=== PATIENT | female | born 1995 | race Two or more races ===

== ENCOUNTER 2017-01-08 23:39 | Emergency (ER) | payer OTHER ==
--- NOTE | 2017-01-09 00:07 | EDPHY ---
H & P Stated Complaint: abd pain; 6 weeks HPI/ROS: HPI CHIEF COMPLAINT: Abdominal pain and 6 weeks HISTORY OF PRESENT ILLNESS: This patient very pleasant 21-year-old female otherwise healthy no significant medical history does not take any daily medications she presents emergency room with her significant other abdominal pain. Associated nausea. She denies any fever chest pain or shortness of breath. She denies active vomiting. She states around 730 this morning she developed some left upper quadrant abdominal pain and nausea but no vomiting. Denies any vaginal discharge or vaginal bleeding. Denies any urinary symptoms or back pain. Denies chest pain or shortness of breath or pleuritic pain. She does state that she is 6 weeks she states she took a home test that was positive and her last menstrual period was November 24. No other complaints. Past Medical History: Denies medical history Past Surgical History: Denies surgical history Social History: Denies daily use of drugs alcohol tobacco. Family History: Noncontributory ROS REVIEW OF SYSTEMS: A comprehensive 10 point review of systems is otherwise negative aside from elements mentioned in the history of present illness. Exam Constitutional appears well nontoxic triage nursing summary reviewed, vital signs reviewed, awake/alert. Eyes normal conjunctivae and sclera, EOMI, PERRLA. HENT normal inspection, atraumatic, moist mucus membranes, no epistaxis, neck supple/ no meningismus, no raccoon eyes. Respiratory clear to auscultation bilaterally, normal breath sounds, no respiratory distress, no wheezing. Cardiovascular rate normal, regular rhythm, no murmur, no edema, distal pulses normal. Gastrointestinal I cannot elicit any pain on exam, soft, non-tender, no rebound , no guarding, normal bowel sounds, no distension, no pulsatile mass. Genitourinary no CVA tenderness. Musculoskeletal no midline vertebral tenderness, full range of motion, no calf swelling, no tenderness of extremities, no meningismus, good pulses, neurovascularly intact. Skin pink, warm, & dry, no rash, skin atraumatic. Neurologic awake, alert and oriented x 3, AAOx3, moves all 4 extremities equally, motor intact, sensory intact, CN II-XII intact, normal cerebellar, normal vision, normal speech. Psychiatric normal mood/affect. Heme/Lymph/Immune no lymphadenopathy. Differential diagnosis includes but is not limited to and in no particular order : Ectopic , abdominal pain in , threatened AB, Bowel obstruction, appendicitis, gallbladder disease, diverticulitis, colitis, enteritis, perforated viscus, gastritis, GERD, esophagitis, urinary tract infection, pyelonephritis, kidney stones Medical Decision Making: Plan for this patient IV establishment, blood draw, test, quant, ultrasound for , check urinalysis, gentle IV hydration and Zofran for nausea and re-evaluate. Re-evaluation: 0210: Ultrasound shows 6 week IUP. Otherwise unremarkable ultrasound. Blood work has been reviewed is unremarkable. No leukocytosis. Patient is resting comfortably no acute distress abdomen is soft nontender. Discussed return precautions she understands return emergency room she develops worsening abdominal pain fever vomiting. Source: Patient - Personal History Current Tetanus/Diphtheria Vaccine: Unsure - Medical/Surgical History Hx Asthma: No Hx Chronic Respiratory Disease: No Hx Diabetes: No Hx Cardiac Disease: No Hx Renal Disease: No Hx Cirrhosis: No Hx Alcoholism: No Hx HIV/AIDS: No Hx Splenectomy or Spleen Trauma: No Other PMH: PMHx: PSHx: denies - Social History Smoking Status: Never smoked Constitutional: Initial Vital Signs Temperature (C) 36.6 C 01/08/17 23:44 Heart Rate 65 01/08/17 23:44 Respiratory Rate 16 01/08/17 23:44 Blood Pressure 115/71 01/08/17 23:44 O2 Sat (%) 96 01/08/17 23:44 O2 Delivery Mode Room Air Allergies/Adverse Reactions: No Known Allergies Allergy (Unverified 01/08/17 23:44) Home Medications: Medication Instructions Recorded NK [No Known Home Meds] 01/08/17 Medical Decision Making - Data Points Laboratory Results: Laboratory Results 01/09/17 01:20 01/09/17 01:20 01/09/17 01/09/17 01/09/17 01:20 01:20 01:00 WBC 9.30 10^3/uL 10^3/uL (3.80-9.50) RBC 5.40 10^6/uL H 10^6/uL (4.18-5.33) Hgb 11.7 g/dL L g/dL (12.6-16.3) Hct 37.7 % L % (38.0-47.0) MCV 69.8 fL L fL (81.5-99.8) MCH 21.7 pg L pg (27.9-34.1) MCHC 31.0 g/dL L g/dL (32.4-36.7) RDW 15.0 % % (11.5-15.2) Plt Count 233 10^3/uL 10^3/uL (150-400) MPV TNP Neut % (Auto) 40.6 % % (39.3-74.2) Lymph % (Auto) 48.2 % H % (15.0-45.0) [place] % (Auto) 9.1 % % (4.5-13.0) Eos % (Auto) 1.4 % % (0.6-7.6) Baso % (Auto) 0.5 % % (0.3-1.7) Nucleat RBC Rel Count 0.0 % % (0.0-0.2) Absolute Neuts (auto) 3.77 10^3/uL 10^3/uL (1.70-6.50) Absolute Lymphs (auto) 4.48 10^3/uL H 10^3/uL (1.00-3.00) Absolute Monos (auto) 0.85 10^3/uL H 10^3/uL (0.30-0.80) Absolute Eos (auto) 0.13 10^3/uL 10^3/uL (0.03-0.40) Absolute Basos (auto) 0.05 10^3/uL 10^3/uL (0.02-0.10) Absolute Nucleated RBC 0.00 10^3/uL 10^3/uL (0-0.01) Immature Gran % 0.2 % % (0.0-1.1) Immature Gran # 0.02 10^3/uL 10^3/uL (0.00-0.10) Platelet Estimate Pending Smear Review By Pending Sodium 137 mEq/L mEq/L (134-144) Potassium 3.8 mEq/L mEq/L (3.5-5.2) Chloride 107 mEq/L mEq/L (97-110) Carbon Dioxide 20 mEq/l L mEq/l (22-31) Anion Gap 10 mEq/L mEq/L (8-16) BUN 4 mg/dL L mg/dL (7-23) Creatinine 0.5 mg/dL L mg/dL (0.6-1.0) Estimated GFR > 60 Glucose 75 mg/dL mg/dL (70-100) Calcium 9.4 mg/dL mg/dL (8.5-10.4) Total Bilirubin 0.7 mg/dL mg/dL (0.1-1.4) Conjugated Bilirubin 0.3 mg/dL mg/dL (0.0-0.5) Unconjugated Bilirubin 0.4 mg/dL mg/dL (0.0-1.1) AST 18 IU/L IU/L (14-46) ALT 23 IU/L IU/L (9-52) Alkaline Phosphatase 45 IU/L IU/L (38-126) Total Protein 7.2 g/dL g/dL (6.3-8.2) Albumin 3.9 g/dL g/dL (3.5-5.0) Lipase 58 IU/L IU/L (23-300) Beta HCG, Quant Pending Urine Color YELLOW Urine Appearance CLEAR Urine pH 7.0 (5.0-7.5) Ur Specific [place] 1.013 (1.002-1.030) Urine Protein NEGATIVE (NEGATIVE) Urine Ketones TRACE H (NEGATIVE) Urine Blood NEGATIVE (NEGATIVE) Urine Nitrate NEGATIVE (NEGATIVE) Urine Bilirubin NEGATIVE (NEGATIVE) Urine Urobilinogen NEGATIVE EU EU (0.2-1.0) Ur Leukocyte Esterase NEGATIVE (NEGATIVE) Urine Glucose NEGATIVE (NEGATIVE) Medications Given: Discontinued Medications Sodium Chloride (Ns) 1,000 mls @ 0 mls/hr IV EDNOW ONE; Wide Open PRN Reason: Protocol Stop: 01/09/17 00:14 Last Admin: 01/09/17 01:41 Dose: 1,000 mls Ondansetron HCl (Zofran) 4 mg IVP EDNOW ONE Stop: 01/09/17 00:21 Last Admin: 01/09/17 01:42 Dose: 4 mg Departure - Departure Disposition: Home, Routine, Self-Care Clinical Impression: Qualifiers: Weeks of gestation: less than 8 weeks Qualified Code(s): Z3A.01 - Less than 8 weeks gestation of Abdominal pain Qualifiers: Abdominal location: left upper quadrant Qualified Code(s): R10.12 - Left upper quadrant pain Condition: Good Instructions: (ED), Acute Abdominal Pain (ED) Additional Instructions: 1. Please start taking a multivitamin. 2. Return emergency room if develops worsening symptoms questions or concerns. This includes worsening abdominal pain fever vomiting. Referrals: NONE *PRIMARY CARE P,. [Primary Care Provider] - As per Instructions
[2017-01-09] MEDS ORDERED: NS 1,000 ML IV ONE (00:13)
[2017-01-09] MEDS ORDERED: ONDANSETRON 4 MG/2 ML VIAL IVP ONE (00:20)
[2017-01-09 01:33] LABS: % IMMATURE GRANULYOCYTES 0.2 % (0.0-1.1); ABSOLUTE IMMATURE GRANULOCYTES 0.02 10^3/uL (0.00-0.10); ADD DIFF? NO; ADD MORPH? YES; ADD SCAN? NO; ATYPICAL LYMPHOCYTE FLAG 0 (0-99); FRAGMENT RBC FLAG 40 (0-99); HEMATOCRIT 37.7 % (38.0-47.0); HEMOGLOBIN 11.7 g/dL (12.6-16.3); LEFT SHIFT FLG 0 (0-99); LIPEMIA HEMOLYSIS FLAG 80 (0-99); MEAN CELL HEMOGLOBIN 21.7 pg (27.9-34.1); PLATELET CLUMPS FLAG 10 (0-99); PLATELET COUNT 233 10^3/uL (150-400)
[2017-01-09 01:35] LABS: ALANINE AMINOTRANSFERASE 23 IU/L (9-52); ALBUMIN 3.9 g/dL (3.5-5.0); ALKALINE PHOSPHATASE 45 IU/L (38-126); ANION GAP 10 mEq/L (8-16); ASPARTATE AMINOTRANSFERASE 18 IU/L (14-46); BILIRUBIN,TOTAL 0.7 mg/dL (0.1-1.4); BILIRUBIN-CONJUGATED 0.3 mg/dL (0.0-0.5); BILIRUBIN-UNCONJUGATED 0.4 mg/dL (0.0-1.1); CALCIUM 9.4 mg/dL (8.5-10.4); CARBON DIOXIDE 20 mEq/l (22-31); CHLORIDE 107 mEq/L (97-110); CREATININE 0.5 mg/dL (0.6-1.0); GLOMERULAR FILTRATION RATE > 60; GLUCOSE 75 mg/dL (70-100); POTASSIUM 3.8 mEq/L (3.5-5.2); SODIUM 137 mEq/L (134-144); TOTAL PROTEIN 7.2 g/dL (6.3-8.2)
[2017-01-09 01:42] LABS: COLOR YELLOW; LEUKOCYTE ESTERASE,URINE NEGATIVE (NEGATIVE); NITRITE,URINE NEGATIVE (NEGATIVE)
[2017-01-09 01:59] LABS: MEAN CELL VOLUME 69.8 fL (81.5-99.8)
[2017-01-09 02:24] VITALS: BP 89/44; PULSE 50; RESP 14; TEMP 99.1; O2SAT 97
[2017-01-09 04:39] LABS: ELLIPTOCYTES 1+; HYPOCHROMIA 1+; KERATOCYTES 1+; MICROCYTES 2+; PLATELET ESTIMATE ADEQUATE (ADEQ); SCHISTOCYTES 1+
== END 2017-01-09 02:22 | disposition home or self-care (01) ==
DX: O26.891 Other specified pregnancy related conditions, first trimester (principal); R10.12 Left upper quadrant pain; O99.281 Endocrine, nutritional and metabolic diseases complicating pregnancy, first trimester; E86.9 Volume depletion, unspecified; Z3A.01 Less than 8 weeks gestation of pregnancy
CPT/HCPCS: 96374; J2405

== ENCOUNTER 2017-01-13 22:16 | Emergency (ER) | payer OTHER ==
[2017-01-13] MEDS ORDERED: FAMOTIDINE 20 MG/NACL 50 ML IV ONE (22:41)
[2017-01-13] MEDS ORDERED: ONDANSETRON 4 MG/2 ML VIAL IVP ONE (22:41)
[2017-01-13] MEDS ORDERED: NS 1,000 ML IV ONE (22:41)
--- NOTE | 2017-01-13 23:15 | EDPHY ---
H & P Stated Complaint: Abdominal pain upper L side, vomiting. 7 weeks. Time Seen by Provider: 01/13/17 22:29 HPI/ROS: HPI The patient presents with abdominal pain and vomiting which has been present for the last 6 days. She initially developed left upper quadrant abdominal pain which is achy in nature and intermittent. This caused her to present to the emergency department several days ago. Here her workup was unremarkable and included basic laboratory tests as well as a pelvic ultrasound. She was discharged home. That same day, she developed nausea and vomiting which has been consistent. She reports that she is able to take little by mouth, today had a few sips of water and orange juice with 1 episode of vomiting and yesterday vomited 3-4 times. Her , who is at the bedside, reports a 3 kg weight loss during the last 1 week. She is approximately 6 and half weeks based on her ultrasound several days ago.. REVIEW OF SYSTEMS Constitutional: No fever, no chills. Eyes: No discharge. ENT: No sore throat. Cardiovascular: No chest pain, no palpitations. Respiratory: No cough, no shortness of breath. Gastrointestinal: See HPI Genitourinary: No hematuria. Musculoskeletal: No back pain. Skin: No rashes. Neurological: No headache. PMHx: Healthy, 6 weeks Soc Hx: Here with her PHYSICAL General Appearance: Alert, no distress Eyes: Pupils equal and round no pallor or injection ENT, Mouth: Mucous membranes dry Respiratory: There are no retractions, lungs are clear to auscultation Cardiovascular: Regular rate and rhythm Gastrointestinal: Abdomen is soft and non-tender, no masses, bowel sounds normal Neurological: A&O, moves all extremities Skin: Warm and dry, no rashes Musculoskeletal: Neck is supple non tender Extremities: symmetrical, full range of motion Psychiatric: Patient is oriented X 3, there is no agitation Source: Patient, Family Exam Limitations: No limitations - Personal History Current Tetanus/Diphtheria Vaccine: Unsure Current Tetanus Diphtheria and Acellular Pertussis (TDAP): Unsure - Medical/Surgical History Hx Asthma: No Hx Chronic Respiratory Disease: No Hx Diabetes: No Hx Cardiac Disease: No Hx Renal Disease: No Hx Cirrhosis: No Hx Alcoholism: No Hx HIV/AIDS: No Hx Splenectomy or Spleen Trauma: No Other PMH: PMHx: denies. PSHx: denies - Social History Smoking Status: Never smoked Constitutional: Initial Vital Signs Temperature (C) 36.6 C 01/13/17 22:18 Heart Rate 84 01/13/17 22:18 Respiratory Rate 16 01/13/17 22:18 Blood Pressure 126/76 H 01/13/17 22:18 O2 Sat (%) 97 01/13/17 22:18 O2 Delivery Mode Room Air Allergies/Adverse Reactions: No Known Allergies Allergy (Verified 01/13/17 22:24) Home Medications: Medication Instructions Recorded Doxylamine/Pyridoxine HCl (B6) 1 each PO DAILY #30 tablet. 01/14/17 [Danyel Heard 10-10 mg Tablet] Medical Decision Making Procedures: Bedside limited right upper quadrant Ultrasound- performed and interpreted by me. Indication: Upper abdominal pain and Findings: No gallstones visualized, no pericholecystic fluid, no gallbladder wall thickening Impression: No sonographic evidence for cholecystitis or cholelithiasis Differential Diagnosis: 21-year-old at approximately 6 weeks based on ultrasound performed several days ago who presents with left upper quadrant abdominal pain associated with nausea and vomiting. Differential diagnosis includes hyperemesis gravidarum, pancreatitis, biliary disease, gastroenteritis, gastritis. In the emergency department, labs were checked and were unremarkable except for ketone urea. The patient was given a 2 L fluid bolus and antiemetics. This causes near resolution of her symptoms. She was able to tolerate water without difficulty. I did perform right upper quadrant ultrasound to evaluate for any biliary disease and my study was unremarkable. She had no further abdominal pain in the emergency department. I feel she likely has hyperemesis is the cause of her symptoms. I have prescribed her dicygis. She has follow up shortly with OBGYN. - Data Points Laboratory Results: Laboratory Results 01/13/17 23:45 01/13/17 23:45 01/14/17 01/13/17 01/13/17 00:10 23:45 23:45 WBC 7.46 10^3/uL 10^3/uL (3.80-9.50) RBC 6.22 10^6/uL H 10^6/uL (4.18-5.33) Hgb 13.3 g/dL g/dL (12.6-16.3) Hct 43.3 % % (38.0-47.0) MCV 69.6 fL L fL (81.5-99.8) MCH 21.4 pg L pg (27.9-34.1) MCHC 30.7 g/dL L g/dL (32.4-36.7) RDW 15.4 % H % (11.5-15.2) Plt Count 218 10^3/uL 10^3/uL (150-400) MPV TNP Neut % (Auto) 48.6 % % (39.3-74.2) Lymph % (Auto) 39.9 % % (15.0-45.0) [place] % (Auto) 9.2 % % (4.5-13.0) Eos % (Auto) 1.3 % % (0.6-7.6) Baso % (Auto) 0.9 % % (0.3-1.7) Nucleat RBC Rel Count 0.0 % % (0.0-0.2) Absolute Neuts (auto) 3.61 10^3/uL 10^3/uL (1.70-6.50) Absolute Lymphs (auto) 2.98 10^3/uL 10^3/uL (1.00-3.00) Absolute Monos (auto) 0.69 10^3/uL 10^3/uL (0.30-0.80) Absolute Eos (auto) 0.10 10^3/uL 10^3/uL (0.03-0.40) Absolute Basos (auto) 0.07 10^3/uL 10^3/uL (0.02-0.10) Absolute Nucleated RBC 0.00 10^3/uL 10^3/uL (0-0.01) Immature Gran % 0.1 % % (0.0-1.1) Immature Gran # 0.01 10^3/uL 10^3/uL (0.00-0.10) Platelet Estimate ADEQUATE (ADEQ) Large Platelets PRESENT H Hypochromasia 1+ H Microcytic Cells 2+ H Echinocytes 1+ H Elliptocytes 1+ H Keratocytes 1+ H Schistocytes 1+ H Smear Review By Pending Sodium 141 mEq/L mEq/L (134-144) Potassium 3.8 mEq/L mEq/L (3.5-5.2) Chloride 105 mEq/L mEq/L (97-110) Carbon Dioxide 18 mEq/l L mEq/l (22-31) Anion Gap 18 mEq/L H mEq/L (8-16) BUN 6 mg/dL L mg/dL (7-23) Creatinine 0.5 mg/dL L mg/dL (0.6-1.0) Estimated GFR > 60 Glucose 86 mg/dL mg/dL (70-100) Calcium 9.4 mg/dL mg/dL (8.5-10.4) Total Bilirubin 0.7 mg/dL mg/dL (0.1-1.4) Conjugated Bilirubin 0.1 mg/dL mg/dL (0.0-0.5) Unconjugated Bilirubin 0.6 mg/dL mg/dL (0.0-1.1) AST 31 IU/L IU/L (14-46) ALT 38 IU/L IU/L (9-52) Alkaline Phosphatase 48 IU/L IU/L (38-126) Total Protein 7.2 g/dL g/dL (6.3-8.2) Albumin 4.2 g/dL g/dL (3.5-5.0) Lipase 49 IU/L IU/L (23-300) Beta HCG, Quant 81293.00 mIU/mL H mIU/mL (0.00-4.83) Urine Color YELLOW Urine Appearance CLEAR Urine pH 5.0 (5.0-7.5) Ur Specific [place] 1.023 (1.002-1.030) Urine Protein NEGATIVE (NEGATIVE) Urine Ketones 2+ H (NEGATIVE) Urine Blood NEGATIVE (NEGATIVE) Urine Nitrate NEGATIVE (NEGATIVE) Urine Bilirubin NEGATIVE (NEGATIVE) Urine Urobilinogen NEGATIVE EU EU (0.2-1.0) Ur Leukocyte Esterase NEGATIVE (NEGATIVE) Urine Glucose NEGATIVE (NEGATIVE) Medications Given: Discontinued Medications Sodium Chloride (Ns) 1,000 mls @ 0 mls/hr IV EDNOW ONE; Wide Open PRN Reason: Protocol Stop: 01/13/17 22:42 Last Admin: 01/13/17 23:11 Dose: 1,000 mls Famotidine/Sodium Chloride (Pepcid 20 Mg (Premix)) 50 mls @ 200 mls/hr IV EDNOW ONE Stop: 01/13/17 22:55 Last Admin: 01/13/17 23:10 Dose: 50 mls Sodium Chloride (Ns) 1,000 mls @ 0 mls/hr IV ONCE ONE; Wide Open PRN Reason: Protocol Stop: 01/14/17 01:17 Last Admin: 01/14/17 01:19 Dose: 1,000 mls Ondansetron HCl (Zofran) 4 mg IVP EDNOW ONE Stop: 01/13/17 22:42 Last Admin: 01/13/17 23:10 Dose: 4 mg Departure - Departure Disposition: Home, Routine, Self-Care Clinical Impression: Upper abdominal pain, Vomiting Condition: Good Instructions: Hyperemesis Gravidarum (ED) Additional Instructions: Please return to the emergency department if you are worse in any way. Please take the medication as prescribed. You should follow up as planned with the OBGYN group. Please take small sips of fluid throughout the day and eat bland foods such as crackers. Referrals: [facility] [Provider Group] - As per Instructions Prescriptions: Doxylamine/Pyridoxine HCl (B6) [Danyel Heard 10-10 mg Tablet] 1 each PO DAILY # 30 tablet.
[2017-01-14 00:04] LABS: % IMMATURE GRANULYOCYTES 0.1 % (0.0-1.1); ABSOLUTE IMMATURE GRANULOCYTES 0.01 10^3/uL (0.00-0.10); ADD DIFF? NO; ADD MORPH? YES; ADD SCAN? NO; ATYPICAL LYMPHOCYTE FLAG 10 (0-99); HEMATOCRIT 43.3 % (38.0-47.0); HEMOGLOBIN 13.3 g/dL (12.6-16.3); LEFT SHIFT FLG 0 (0-99); LIPEMIA HEMOLYSIS FLAG 80 (0-99); MEAN CELL HEMOGLOBIN 21.4 pg (27.9-34.1); MEAN CELL HEMOGLOBIN CONCENTR. 30.7 g/dL (32.4-36.7); PLATELET CLUMPS FLAG 10 (0-99); PLATELET COUNT 218 10^3/uL (150-400); RED BLOOD CELL COUNT 6.22 10^6/uL (4.18-5.33); RED CELL DISTRIBUTION WIDTH 15.4 % (11.5-15.2)
[2017-01-14 00:06] LABS: FRAGMENT RBC FLAG 120 (0-99); MEAN CELL VOLUME 69.6 fL (81.5-99.8)
[2017-01-14 00:20] LABS: ALANINE AMINOTRANSFERASE 38 IU/L (9-52); ALBUMIN 4.2 g/dL (3.5-5.0); ALKALINE PHOSPHATASE 48 IU/L (38-126); ANION GAP 18 mEq/L (8-16); ASPARTATE AMINOTRANSFERASE 31 IU/L (14-46); BILIRUBIN,TOTAL 0.7 mg/dL (0.1-1.4); BILIRUBIN-CONJUGATED 0.1 mg/dL (0.0-0.5); BILIRUBIN-UNCONJUGATED 0.6 mg/dL (0.0-1.1); CALCIUM 9.4 mg/dL (8.5-10.4); CARBON DIOXIDE 18 mEq/l (22-31); CHLORIDE 105 mEq/L (97-110); CREATININE 0.5 mg/dL (0.6-1.0); GLOMERULAR FILTRATION RATE > 60; GLUCOSE 86 mg/dL (70-100); POTASSIUM 3.8 mEq/L (3.5-5.2); SODIUM 141 mEq/L (134-144); TOTAL PROTEIN 7.2 g/dL (6.3-8.2)
[2017-01-14 00:40] LABS: COLOR YELLOW; LEUKOCYTE ESTERASE,URINE NEGATIVE (NEGATIVE); NITRITE,URINE NEGATIVE (NEGATIVE)
[2017-01-14 01:10] LABS: ECHINOCYTES 1+; ELLIPTOCYTES 1+; HYPOCHROMIA 1+; KERATOCYTES 1+; LARGE PLATELETS PRESENT; MICROCYTES 2+; PLATELET ESTIMATE ADEQUATE (ADEQ); SCHISTOCYTES 1+
[2017-01-14] MEDS ORDERED: NS 1,000 ML IV ONE (01:16)
[2017-01-14 02:42] VITALS: BP 109/62; PULSE 70; RESP 16; TEMP 98.1; O2SAT 97
== END 2017-01-14 02:40 | disposition home or self-care (01) ==
DX: O26.891 Other specified pregnancy related conditions, first trimester (principal); R10.10 Upper abdominal pain, unspecified; O21.1 Hyperemesis gravidarum with metabolic disturbance; E86.9 Volume depletion, unspecified; Z3A.01 Less than 8 weeks gestation of pregnancy
CPT/HCPCS: 96365; J2405

== ENCOUNTER 2017-03-19 04:23 | Emergency (ER) | payer OTHER ==
--- NOTE | 2017-03-19 04:26 | EDPHY ---
H & P HPI/ROS: HPI CHIEF COMPLAINT: Bilateral ear pain. HISTORY OF PRESENT ILLNESS: This patient very pleasant 21-year-old female, otherwise healthy no significant medical history she is currently 16 weeks , she presents emergency room bilateral ear pain and sore throat times 24 hr. Denies fever. Denies chest pain or shortness of breath. Denies productive cough. Denies abdominal pain or urinary symptoms. Denies pelvic cramping. Denies vaginal discharge. Main complaint bilateral ear pain. Past Medical History: No significant medical history Past Surgical History: No significant surgical history Social History: [employer] student, from [place], denies drugs alcohol tobacco products. Family History: Noncontributory ROS REVIEW OF SYSTEMS: A comprehensive 10 point review of systems is otherwise negative aside from elements mentioned in the history of present illness. Exam Constitutional appears well nontoxic, triage nursing summary reviewed, vital signs reviewed, awake/alert. Eyes normal conjunctivae and sclera, EOMI, PERRLA. HENT posterior pharynx is normal, bilateral TM slight erythema with disc bulge , normal inspection, atraumatic, moist mucus membranes, no epistaxis, neck supple/ no meningismus, no raccoon eyes. Respiratory clear to auscultation bilaterally, normal breath sounds, no respiratory distress, no wheezing. Cardiovascular rate normal, regular rhythm, no murmur, no edema, distal pulses normal. Gastrointestinal soft, non-tender, no rebound, no guarding, normal bowel sounds, no distension, no pulsatile mass. Genitourinary no CVA tenderness. Musculoskeletal no midline vertebral tenderness, full range of motion, no calf swelling, no tenderness of extremities, no meningismus, good pulses, neurovascularly intact. Skin pink, warm, & dry, no rash, skin atraumatic. Neurologic awake, alert and oriented x 3, AAOx3, moves all 4 extremities equally, motor intact, sensory intact, CN II-XII intact, normal cerebellar, normal vision, normal speech. Psychiatric normal mood/affect. Heme/Lymph/Immune no lymphadenopathy. Differential Diagnosis: Includes but is not limited to in a particular order, viral syndrome, otitis media, upper respiratory tract infection, viral pharyngitis, strep pharyngitis Medical Decision Making: Plan for this patient posterior pharynx unremarkable, bilateral TMs are erythematous. Will treat for otitis media. Will start on amoxicillin. 1st dose given in the emergency room. Take-home pack as well as prescription. Return precautions discussed with her she understands. Source: Patient - Medical/Surgical History Hx Asthma: No Hx Chronic Respiratory Disease: No Hx Diabetes: No Hx Cardiac Disease: No Hx Renal Disease: No Hx Cirrhosis: No Hx Alcoholism: No Hx HIV/AIDS: No Hx Splenectomy or Spleen Trauma: No Other PMH: PMHx: denies. PSHx: denies - Social History Smoking Status: Never smoked Constitutional: Initial Vital Signs Temperature (C) 36.6 C 03/19/17 04:26 Heart Rate 50 L 03/19/17 04:26 Respiratory Rate 18 03/19/17 04:26 Blood Pressure 122/53 H 03/19/17 04:26 O2 Sat (%) 97 03/19/17 04:26 O2 Delivery Mode Room Air Allergies/Adverse Reactions: No Known Allergies Allergy (Verified 03/19/17 04:25) Home Medications: Medication Instructions Recorded Amoxicillin Trihydrate 500 mg PO TID 7 Days cap 03/19/17 [Amoxicillin] Departure - Departure Disposition: Home, Routine, Self-Care Clinical Impression: Otitis media Qualifiers: Otitis media type: unspecified Chronicity: acute Qualified Code(s): H66.90 - Otitis media, unspecified, unspecified ear Condition: Good Instructions: Ear Infection (ED) Additional Instructions: 1. Drink lots of fluids stay well-hydrated. 2. You may take Tylenol for pain. 3. Antibiotic as prescribed. 4. Return emergency room if you have worsening symptoms questions or concerns. Referrals: NONE *PRIMARY CARE P,. [Primary Care Provider] - As per Instructions Prescriptions: Amoxicillin Trihydrate [Amoxicillin] 500 mg PO TID 7 Days cap
[2017-03-19] MEDS ORDERED: AMOXICILLIN 250 MG PREPACK#4 BTL TAKEHOME ONE (04:36)
[2017-03-19] MEDS ORDERED: ACETAMINOPHEN 325 MG TAB ONE (05:04)
[2017-03-19] MEDS ORDERED: ACETAMINOPHEN 325 MG TAB PO ONE (05:09)
[2017-03-19 05:39] VITALS: BP 128/72; PULSE 58; RESP 16; TEMP 98.2; O2SAT 94
== END 2017-03-19 05:15 | disposition home or self-care (01) ==
DX: H66.93 Otitis media, unspecified, bilateral (principal)

== ENCOUNTER → 2017-04-16 | Outpatient (CLI) | payer OTHER | LOC: FIMAGING 12:09 | PROVIDERS: ATTEND Advanced Practice Midwife | DX: Z34.82 Encounter for supervision of other normal pregnancy, second trimester (principal); Z3A.20 20 weeks gestation of pregnancy ==

== ENCOUNTER 2017-09-01 07:15 | Observation (INO) | payer OTHER ==
--- NOTE | 2017-09-01 10:51 | GHP ---
[f rep st] HISTORY AND PHYSICAL DATE OF ADMISSION: 09/01/2017 ADMITTING DIAGNOSES: 1. Intrauterine at 40 weeks 1 day with contractions. 2. Prodromal labor. HISTORY OF PRESENT ILLNESS: Patient is a 22-year-old, G1, P0, at 40 weeks with an estimated due date September 01, 2017. This is by last menstrual period, 2016, and confirmed by first trimester ultrasound at 6 weeks. The patient gets her care at the Center and the is pretty much uncomplicated. She was sent over here because she had presented with painful contractions yesterday, and had progressed to 3 cm, 60%, -2, but on reexamination no cervical change was noted for 20 hours. She was sent over here for pain relief and possible labor augmentation. The patient was fasting for Ramadan and was also noted to be dehydrated. On L&D, she has been resting and was given something for sleep. She had breakfast and is doing well with p.o. hydration. Her contractions have spaced out and she states the contractions are about a 2/10, very mild. States good movement. Denies any leakage of fluid or vaginal bleeding. GBS culture is negative. PAST OB HISTORY: This is the patient's first . 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 Patient denies a history of abnormal Pap smears or any exposure to STDs. PAST MEDICAL HISTORY: Unremarkable. PAST SURGICAL HISTORY: None. FAMILY HISTORY: Noncontributory. SOCIAL HISTORY: Patient is and lives with her . Denies any alcohol, tobacco, or illicit drug use. The patient is from [place], with limited [place]. REVIEW OF SYSTEMS: 10-point review of systems is negative. Pertinent positives noted in HPI. LABS: She is O positive, antibody negative. Rubella immune. Hepatitis B surface antigen negative. HIV negative. Hemoglobin 12.9, hematocrit 40.8, platelets 284. Chlamydia, and gonorrhea cultures negative. Genetic screen negative. One-hour Glucola 82. Repeat hemoglobin 10.8, hematocrit 34.6. GBS culture is negative. PHYSICAL EXAMINATION: VITAL SIGNS: On admission, vital signs are stable. Patient is afebrile. GENERAL: Well-nourished, well-developed female alert and oriented x3. No apparent distress. SKIN: Warm, dry, normal color, with no rash. CARDIOVASCULAR: Regular rate and rhythm, without murmur. LUNGS: Clear to auscultation bilaterally. ABDOMEN: Soft, nontender, gravid. PELVIC: She is noted to be unchanged at 3 cm dilated, 60% effaced, -2 station, intact, cephalic. EXTREMITIES: Normal to inspection without calf tenderness or edema. heart tones are Category 1, reactive with heart baseline at 135 beats per minute. Positive accelerations. No decelerations. On toco, the contractions are irregular, every 7-9 minutes. ASSESSMENT: The patient is a 22-year-old 1, para 0, at 40 weeks with contractions, prodromal labor. 1. She was admitted for observation. 2. Nonstress test is reactive, Category 1 strip. 3. Contractions felt to be due to dehydration and fasting. 4. No cervical change noted over the last several hours while here on Labor and Delivery. 5. Discussed either proceeding with an augmentation of labor with Pitocin or having her go home and monitor contractions and go into labor spontaneously; they would like to go home at this time. 6. Patient is stable for discharge home. Labor precautions given. The patient is to follow up with Center and keep her scheduled appointment and ultrasound for next week. Greater than 30 min was spent face to face with the patient. /[id number]/MODL MTDD
== END 2017-09-01 10:15 | disposition home or self-care (01) ==
LOC: INTOOBSV 07:15 → FLD 07:15
PROVIDERS: ADMIT Obstetrics & Gynecology; ATTEND Obstetrics & Gynecology
DX: O47.9 False labor, unspecified (principal); Z3A.40 40 weeks gestation of pregnancy
CPT/HCPCS: G0378

== ENCOUNTER 2017-09-02 19:55 | Inpatient (IN) | payer OTHER ==
[2017-09-02] MEDS: LR 500 ML IV SCH ×2 (20:39→21:40)
[2017-09-02] MEDS ORDERED: OXYTOCIN/RINGERS LACTATE 500 ML IV SCH (21:00)
[2017-09-02] MEDS ORDERED: LR 500 ML IV PRN (21:00)
[2017-09-02] MEDS ORDERED: LR 1,000 ML IV PRN (21:01)
[2017-09-02] MEDS ORDERED: TERBUTALINE SULFATE 1 MG/ML VIAL IV PRN (21:01)
[2017-09-02] MEDS ORDERED: EPSOM SALT 454 GM TP PRN (21:01)
[2017-09-02] MEDS ORDERED: OLIVE OIL 118 ML BTL MISC PRN (21:01)
[2017-09-02] MEDS ORDERED: LIDOCAINE 1% 300 MG/30 ML SDV SC PRN (21:01)
[2017-09-02] MEDS ORDERED: MISOPROSTOL 200 MCG TAB PR PRN (21:01)
[2017-09-02] MEDS ORDERED: IBUPROFEN 600 MG TAB PO PRN (21:01)
[2017-09-02 21:45] LABS: PLATELET COUNT 184 10^3/uL (150-400)
--- NOTE | 2017-09-02 22:01 | PREANESOB ---
Obstetric Pre-Anesthesia Info - General Info Proposed Procedure: Continuous labor (lumbar) epidural : 1 Para: 0 - Info Status: Full Term - Labor Status Cervical Dilation per last OB SVE: 5 Magnesium Sulfate in Use: No Indications for Labor Analgesia: Pain Control Labor Epidural: Proposed Anesthesia Allergies/Adverse Reactions: Allergy/AdvReac Type Severity Reaction Status Date / Time No Known Allergies Allergy Verified 03/19/17 04:25 Home Medications: Medication Instructions Recorded Ferrous Sulfate 1 tab PO DAILY 09/02/17 Visit Medications: Generic Name Dose Route Start Last Admin Trade Name Freq PRN Reason Stop Dose Admin Lactated Ringer's 500 mls @ 500 mls/hr 09/02/17 21:00 Lr IV 09/03/17 21:00 PRN PRN Maternal Hypotension Oxytocin/Lactated Ringer's 500 mls @ 0 mls/hr 09/02/17 21:00 Pitocin 30 Units/Lr (Premix) IV 03/01/18 20:59 CONT CHITO Protocol Per Protocol Lactated Ringer's 1,000 mls @ 0 mls/hr 09/02/17 21:01 Lr IV 09/03/17 21:00 PRN PRN SEE PROTOCOL CONDITIONS Protocol Per Protocol Ibuprofen 600 mg 09/02/17 21:01 Motrin PO ONCE PRN post , pain Lidocaine HCl 300 mg 09/02/17 21:01 Lidocaine Hcl 1% SC 03/01/18 21:00 ONCE PRN episiotomy Magnesium Sulfate 454 gm 09/02/17 21:01 Epsom Salt TP 03/01/18 21:00 Q1H PRN perineal discomfort Misoprostol 800 - 1,000 mcg 09/02/17 21:01 Cytotec NV ONCE PRN Vaginal Atony/Bleeding [place] Oil 118 ml 09/02/17 21:01 Sweet Oil MISC 03/01/18 21:00 ONCE PRN perineal massage Terbutaline Sulfate 0.25 mg 09/02/17 21:01 Brethine IV 03/01/18 21:00 ONCE PRN Tachysystole - Anesthesia History Response to Local Anesthetics: Normal Anesthesia & Operative History: No Prior Problems Family Anesthesia History: Not Applicable - Social History Substance Use/Abuse: Denies - Vital Signs Height/Weight (Nursing): Height 153 cm Weight 83.461 kg - Focused Exam Neck exam: FROM Mallampati Score: Class 2 Mouth exam: normal dental/mouth exam Pulmonary: no respiratory distress Cardiovascular: regular rate and rhythym Labs: 09/02/17 20:45 09/02/17 20:45 Patient ABO/Rh O POSITIVE 09/02/17 20:45 Uric Acid 4.1 mg/dL (2.5-6.8) 09/02/17 20:45 Total Bilirubin 1.2 mg/dL (0.1-1.4) 09/02/17 20:45 Conjugated Bilirubin 0.6 mg/dL (0.0-0.5) H 09/02/17 20:45 Unconjugated Bilirubin 0.6 mg/dL (0.0-1.1) 09/02/17 20:45 AST 48 IU/L (14-46) H 09/02/17 20:45 ALT 77 IU/L (9-52) H 09/02/17 20:45 Lactate Dehydrogenase 526 IU/L (313-618) 09/02/17 20:45 - Plan Consent Signed and on Chart: Yes Patient/Guardian Understands and Agrees to Plan: Yes General Comments: Consent obtained from patient with aid of interpretor services / telephone
[2017-09-02] MEDS ORDERED: PHENYLEPHRINE HCL 100 MCG/ML SYR IVP PRN (22:02)
[2017-09-02] MEDS ORDERED: ONDANSETRON 4 MG/2 ML VIAL IVP PRN (22:02)
[2017-09-02] MEDS ORDERED: NALOXONE HCL 0.4 MG/ML INJ IVP PRN (22:02)
[2017-09-02] MEDS ORDERED: PHENYLEPHRINE HCL 100 MCG/ML SYR ONE (22:05)
[2017-09-02] MEDS ORDERED: BUPIVACAINE 0.25% 30 ML SDV ONE (22:05)
[2017-09-02] MEDS ORDERED: fentaNYL 2MCG/ML/BUP 0.1% RTU 100 ML EP SCH (22:30)
[2017-09-02] MEDS ORDERED: fentaNYL 200 MCG, BUPIVACAINE 0.5% 20 ML in NS 100 ML EP SCH (22:30)
[2017-09-03] MEDS ORDERED: OXYTOCIN 100 UNITS/10 ML VIAL IV ONE (01:29)
[2017-09-03] MEDS ORDERED: OXYTOCIN/RINGERS LACTATE 1,000 ML IV SCH (02:00)
[2017-09-03] MEDS ORDERED: DOCUSATE SODIUM 100 MG CAP PO PRN (02:12)
[2017-09-03] MEDS ORDERED: ACETAMINOPHEN 325 MG TAB PO PRN (02:12)
[2017-09-03] MEDS ORDERED: HYDROCORTISONE 0.5% CREAM TP PRN (02:12)
[2017-09-03] MEDS ORDERED: SIMETHICONE 80 MG TAB CHEW PO PRN (02:12)
[2017-09-03] MEDS ORDERED: HYDROCODONE/APAP 5/325 TAB PO PRN (02:12)
--- NOTE | 2017-09-03 02:17 | OBDEL ---
Info Type: Vaginal Presentation at Delivery: Vertex L&D Analgesia/Anesthesia Type: Epidural GBS+: No Intrapartum Medications: Generic Name Dose Route Start Last Admin Trade Name Freq PRN Reason Stop Dose Admin Lactated Ringer's 500 mls @ 0 mls/hr 09/02/17 22:30 09/02/17 21:40 Lr IV 03/01/18 22:29 500 mls CONT CHITO Administration As Directed Oxytocin/Lactated Ringer's 1,000 mls @ 150 mls/hr 09/03/17 02:00 09/03/17 01: 56 Pitocin 20 Units/Lr (Premix) IV 09/03/17 08:39 1,000 mls CONT CHITO Administration Poca Oil 118 ml 09/02/17 21:01 09/03/17 01:32 Sweet Oil MISC 03/01/18 21:00 1 btl ONCE PRN Administration perineal massage - Hospital Course Intrapartum: 09/03/17 02:14 arrived from center after 3 days prodromal labor. srom at 4pm. no change past 4 cm. desired pain control. received epidural. rapid progress to complete. pushed well. Indications for Delivery: Spontaneous Labor Vaginal Delivery - Delivery Provider Delivery Physician/CNM: Yasemin Ramesh - Labor and Delivery Onset of Contractions Date: 09/02/17 Onset of Contractions Type: Spontaneous Rupture of Membranes Date: 09/02/17 Rupture of Membranes Time: 04:45 Rupture of Membranes Type: Spontaneous Amniotic Fluid Color: Clear, Meconium Stained (meconium with delivery) Dilation Complete Date: 09/03/17 Dilation Complete Time: 00:44 Placenta Delivery Date: 09/03/17 Placenta Delivery Time: 01:52 Laceration: 2nd Degree Repair: 2-0 Vaginal Sponge Count Correct: Yes Vaginal Needle Count Correct: Yes Vaginal Sweep Performed: Yes EBL: 200 Delivery Events: None [place] [employer] Data DUSTIN: 08/31/17 Gestational Age: 40 week(s) and 3 day(s) [place] Delivery Date: 09/03/17 Delivery Time: 01:48 Sex of Infant: Male Score (1 Min): 8 Score (5 Min): 8 ICD10 Worksheet Patient Problems: Problems Problem Status Onset Normal labor Acute Vaginal delivery Acute Uterine contractions during Acute - ICD10 Problem Qualifiers (1) Normal labor (2) Vaginal delivery
--- NOTE | 2017-09-03 02:50 | GHP ---
[f rep st] PREOP HISTORY AND PHYSICAL DATE OF ADMISSION: 09/02/2017 REASON FOR DIAGNOSIS AND ADMISSION: The patient is a 22-year-old 1, para 0, who is 40 and 2/ 7 weeks gestation who transferred from the [facility]. Patient's estimated date of conf inement is 08/31/2017, dated by last menstrual period consistent with a 1st-trimester ultrasound. Th e patient has been having prodromal labor for the last 3 days, possibly exacerbated by fasting for Ra moffett. She had spontaneous rupture of membranes at 4:45 this afternoon and was not changing past 4 c m dilated and was transferred to [facility] for pain management and possible augmenta tion of labor. The patient's was uncomplicated. PAST MEDICAL HISTORY: Negative. MEDICATIONS: vitamins. PAST SURGICAL HISTORY: None. ALLERGIES: No known drug allergies. SOCIAL HISTORY: Patient is . She is originally from [place] [facility]. She denies tobacco, alcoh ol, or drug use. FAMILY HISTORY: Noncontributory. OBSTETRICS/GYNECOLOGIC HISTORY: she has a history of regular periods. She is a 1, para 0. She has never had a Pap smear before. REVIEW OF SYSTEMS: 10-point review of systems is negative with the exception of the pertinent positi ve loss of fluid, positive movement. Denies any headache, changes in vision, nausea, vomiting, fevers, or chills. PHYSICAL EXAMINATION: VITAL SIGNS: Stable. GENERAL APPEARANCE: Alert and oriented x3. NEURO: Gr ossly intact. PSYCH: Appropriate affect. MUSCULOSKELETAL: Grossly intact. NECK: Mobile and supp le. HEART: Rate is regular. LUNGS: Clear to auscultation bilaterally. ABDOMEN: Gravid, nondisten ded, nontender. EXTREMITIES: Reveal no calf tenderness or edema. PELVIC: Cervical exam on arrival was 4 cm dilated, 80% effaced, and -2 station. Infant is in the vertex presentation. She is having contractions regularly and heart tracings are category 1. LABORATORY DATA: The patient's labs, blood type O positive, Antibody screen negative, Rubel la immune, GBS negative. ASSESSMENT AND PLAN: A 22-year-old 1, para 0, who was 40 and 2/7 weeks gestation who was tra nsferred from the [facility] for pain management and possible augmentation of labor. Th e patient arrived to Labor and Delivery and received an epidural. She then rapidly progressed to [facility] and had a spontaneous vaginal delivery. /[id number]/MODL
--- NOTE | 2017-09-03 11:08 | OBPP ---
Progress Note Assessment/Plan: Assessment/Plan: 22 yo G1, PPD #0, S/P at 0148 this morning. Doing well. Continue routine cares. Melba Mullen MD, FACOG [facility] 09/03/17 11:04 Subjective/ Course: Pt doing well, resting comfortably in bed. going well. Ambulating and voiding without difficulty. Mod lochia. Estefany reg diet. 09/03/17 11:08 Objective: 09/02/17 20:45 09/02/17 20:45 Patient ABO/Rh O POSITIVE 09/02/17 20:45 Uric Acid 4.1 mg/dL (2.5-6.8) 09/02/17 20:45 Total Bilirubin 1.2 mg/dL (0.1-1.4) 09/02/17 20:45 Conjugated Bilirubin 0.6 mg/dL (0.0-0.5) H 09/02/17 20:45 Unconjugated Bilirubin 0.6 mg/dL (0.0-1.1) 09/02/17 20:45 AST 48 IU/L (14-46) H 09/02/17 20:45 ALT 77 IU/L (9-52) H 09/02/17 20:45 Lactate Dehydrogenase 526 IU/L (313-618) 09/02/17 20:45 Temp Pulse Resp BP Pulse Ox 36.4 C 111 H 18 126/81 H 09/03/17 08:43 09/03/17 08:43 09/03/17 08:43 09/03/17 08:43
[2017-09-03] MEDS: IBUPROFEN 600 MG TAB PO PRN (18:17)
--- NOTE | 2017-09-05 07:25 | OBPP ---
Progress Note Assessment/Plan: Assessment: late entry: 09/04/17 0900 22 y/o s/p PPD#1 Plan: Continue routine pp care Anticipated d/c home tomorrow 09/05/17 07:23 Subjective/ Course: Pt doing well, resting comfortably in bed. going well. Ambulating and voiding without difficulty. Mod lochia. Estefany reg diet. 09/03/17 11:08 09/04/17 07:24 Doing well. going well. No concerns. mod lochia, pain will controlled with oral pain meds. Would like to go home tomorrow Objective: 09/02/17 20:45 09/02/17 20:45 Patient ABO/Rh O POSITIVE 09/02/17 20:45 Uric Acid 4.1 mg/dL (2.5-6.8) 09/02/17 20:45 Total Bilirubin 1.2 mg/dL (0.1-1.4) 09/02/17 20:45 Conjugated Bilirubin 0.6 mg/dL (0.0-0.5) H 09/02/17 20:45 Unconjugated Bilirubin 0.6 mg/dL (0.0-1.1) 09/02/17 20:45 AST 48 IU/L (14-46) H 09/02/17 20:45 ALT 77 IU/L (9-52) H 09/02/17 20:45 Lactate Dehydrogenase 526 IU/L (313-618) 09/02/17 20:45 Temp Pulse Resp BP Pulse Ox 36.2 C 76 16 112/68 97 09/03/17 20:00 09/03/17 20:00 09/03/17 20:00 09/03/17 20:00 09/03/17 20:00 Uterine Position/Fundal Height: At Umbilicus Uterine Tone: Firm Physical Exam - Physical Exam EENT: PERRL/EOMI Neck: non-tender Respiratory: chest non-tender Cardiac/Chest: normal peripheral pulses Abdomen: normal bowel sounds Extremities: normal range of motion Skin: normal color Neuro/Psych: no motor/sensory deficits, alert, normal mood/affect, oriented x 3
[2017-09-05 07:56] VITALS: BP 100/65
--- NOTE | 2017-09-05 08:10 | POSTANESTH ---
Post Anesthetic Evaluation Cardiovascular Status: Normal, Stable, Similar to Pre-Op Cond Respiratory Status: Normal, Stable, Similar to Pre-op Cond. Level of Consciousness/Mental Status: Can Participate in Eval, Alert and Oriented Pain Control: Adequate, Prn Tx Ordered Nausea/Vomiting Control: Adequate, Prn Tx Ordered Complications Possibly Related to Anesthesia: None Noted (Patient seen and evaluated on Mom baby unit on 09-04-17 at 11:55am. Documented post-op note at this time due to EMR down-time on 09-04-17.)
--- NOTE | 2017-09-05 11:22 | OBPP ---
Progress Note Assessment/Plan: Assessment: ppd# 2 s/p breast feeding uncomplicated post course o+ Plan: routine post care and discharge instructions 09/05/17 11:20 Subjective/ Course: Pt doing well, resting comfortably in bed. going well. Ambulating and voiding without difficulty. Mod lochia. Estefany reg diet. 09/03/17 11:08 09/04/17 07:24 Doing well. going well. No concerns. mod lochia, pain will controlled with oral pain meds. Would like to go home tomorrow 09/05/17 11:21 patient is doing well. pain is well controlled. normal lochia. denies headache and changes in vision. working on breast feeding. ready to go home. no issues. Objective: 09/02/17 20:45 09/02/17 20:45 Patient ABO/Rh O POSITIVE 09/02/17 20:45 Uric Acid 4.1 mg/dL (2.5-6.8) 09/02/17 20:45 Total Bilirubin 1.2 mg/dL (0.1-1.4) 09/02/17 20:45 Conjugated Bilirubin 0.6 mg/dL (0.0-0.5) H 09/02/17 20:45 Unconjugated Bilirubin 0.6 mg/dL (0.0-1.1) 09/02/17 20:45 AST 48 IU/L (14-46) H 09/02/17 20:45 ALT 77 IU/L (9-52) H 09/02/17 20:45 Lactate Dehydrogenase 526 IU/L (313-618) 09/02/17 20:45 Temp Pulse Resp BP Pulse Ox 36.7 C 72 16 100/65 97 09/05/17 07:55 09/05/17 07:55 09/05/17 07:55 09/05/17 07:55 09/05/17 07:55 Physical Exam - Physical Exam Neck: non-tender, full range of motion, supple, normal inspection Respiratory: chest non-tender, lungs clear, normal breath sounds Cardiac/Chest: normal peripheral pulses, regular rate, rhythm Abdomen: normal bowel sounds, non-tender, other (fundus firm and non tender) Extremities: normal range of motion, non-tender, normal inspection, normal capillary refill Skin: normal color, warm/dry Neuro/Psych: no motor/sensory deficits, alert, normal mood/affect, oriented x 3
--- NOTE | 2017-09-05 11:27 | OBGCSDC ---
General Delivery Information - General Info : 1 Para: 0 Abortions: 0 Type: Vaginal L&D Analgesia/Anesthesia Type: Epidural Admission Date: 09/02/17 Labs: Patient ABO/Rh O POSITIVE 09/02/17 20:45 Hct 40.5 % (38.0-47.0) 09/02/17 20:45 - Hospital Course Antepartum: 09/05/17 11:[address] [facility] in the first trimester. here from [facility] with her who was here for school. uncomplicated . prodromal labor x 3 days. SROM. no change in cervix past 4 cm after several hours. transferred to [facility] for pain management. Intrapartum: 09/03/17 02:14 arrived from center after 3 days prodromal labor. srom at 4pm. no change past 4 cm. desired pain control. received epidural. rapid progress to complete. pushed well. : Pt doing well, resting comfortably in bed. going well. Ambulating and voiding without difficulty. Mod lochia. Estefany reg diet. 09/03/17 11:08 09/04/17 07:24 Doing well. going well. No concerns. mod lochia, pain will controlled with oral pain meds. Would like to go home tomorrow 09/05/17 11:21 patient is doing well. pain is well controlled. normal lochia. denies headache and changes in vision. working on breast feeding. ready to go home. no issues. Vaginal - Delivery Provider Delivery Physician/CNM: Yasemin Ramesh - Diagnosis Labor: Spontaneous Rupture of Membranes Type: Spontaneous Amniotic Fluid Color: Clear, Meconium Stained (meconium with delivery) Laceration: 2nd Degree Repair: 2-0 Delivery Events: None - Delivery EBL: 200 Data DUSTIN: 08/31/17 Gestational Age: 40 week(s) and 5 day(s) [place] Delivery Date: 09/03/17 Delivery Time: 01:48 Sex of : Male Score (1 Min): 8 Score (5 Min): 8 Discharge Information - Discharge Information Condition: Good Instruction/Follow Up: Six Weeks (at [facility])
[2017-09-05] MEDS ORDERED: CETIRIZINE 10 MG TAB PO SCH (12:30)
[2017-09-05] MEDS ORDERED: PSEUDOEPHEDRINE HCL 120 MG EXT REL TAB PO SCH (12:30)
[2017-09-05] MEDS: IBUPROFEN 600 MG TAB PO PRN (12:43)
== END 2017-09-05 14:27 | disposition home or self-care (01) | DRG 775 ==
LOC: FLD 19:55 → FOB 09-03 04:30
PROVIDERS: ADMIT Obstetrics & Gynecology; ATTEND Obstetrics & Gynecology
PROC: 0KQM0ZZ Repair Perineum Muscle, Open Approach (ICD-10-PCS; principal; 2017-09-03)
PROC: 10E0XZZ Delivery of Products of Conception, External Approach (ICD-10-PCS; principal; 2017-09-03)
DX: O70.1 Second degree perineal laceration during delivery (principal); O48.0 Post-term pregnancy; Z37.0 Single live birth; Z3A.40 40 weeks gestation of pregnancy
CPT/HCPCS: J2370; J2590; J3010